=== PATIENT | male | born 1970 | race Two or more races ===

== ENCOUNTER 2022-12-18 20:34 | Emergency (ER) | payer MEDICAID, OTHER ==
[~2022-12-18] VITALS: Ht 162.6 cm; Wt 100.0 kg
[2022-12-18 20:40] VITALS: BP 151/100; PULSE 100; RESP 20; TEMP 98.9
[2022-12-18 21:07] VITALS: O2SAT 100
== END 2022-12-18 21:10 | disposition short-term general hospital (02) ==
LOC: EDBD 20:34 → ER 20:34
DX: S41.012A Laceration without foreign body of left shoulder, initial encounter (principal); F17.210 Nicotine dependence, cigarettes, uncomplicated; F12.10 Cannabis abuse, uncomplicated; F15.10 Other stimulant abuse, uncomplicated; X99.8XXA Assault by other sharp object, initial encounter; Y93.89 Activity, other specified; Y92.89 Other specified places as the place of occurrence of the external cause; Y99.8 Other external cause status

== ENCOUNTER 2023-05-22 03:29 | Emergency (ER) | payer MEDICAID ==
[~2023-05-22] VITALS: Ht 175.3 cm; Wt 104.0 kg
[2023-05-22 04:20] LABS: Basophils # (auto) 0.1 10 ^3/uL (0-0.2); Basophils % (auto) 2.4 % (0.0-2.0); Eosinophils # (auto) 0 10 ^3/uL (0-0.8); Eosinophils % (auto) 0.3 % (0.0-7.0); Hematocrit 44.3 % (41.0-53.0); Hemoglobin 14.6 g/dL (13.5-17.5); Lymphocytes # (auto) 1.9 10 ^3/uL (0.4-5.4); Lymphocytes % (auto) 30.3 % (10.0-50.0); Mean Corpuscular Hemoglobin 32.1 pg (28.0-32.0); Mean Corpuscular Volume 97.3 fL (80.0-100.0); Monocytes # (auto) 0.5 10 ^3/uL (0-1.3); Monocytes % (auto) 7.3 % (0.0-12.0); Neutrophils # (auto) 3.7 10 ^3/uL (1.6-8.6); Neutrophils % (auto) 59.7 % (37.0-80.0); Red Blood Cells 4.56 10^6/uL (4.5-5.90); Red Cell Distribution Width 19.6 % (11.8-14.3); White Blood Cell 6.3 10^3/uL (4.4-10.8)
[2023-05-22 04:25] LABS: INR 1.01 (0.9-1.15); Partial Thromboplastin Time 28.1 SEC (24.5-34.5); Prothrombin Time 10.6 sec (9.3-11.8)
[2023-05-22 05:20] VITALS: BP 180/90; PULSE 109; RESP 16; TEMP 97.7; O2SAT 97
== END 2023-05-22 05:34 | disposition home or self-care (01) ==
LOC: ER 03:29 → EDBD 03:29 → ER 05:34
DX: R07.89 Other chest pain (principal); F10.10 Alcohol abuse, uncomplicated; I10 Essential (primary) hypertension; J44.9 Chronic obstructive pulmonary disease, unspecified; I25.2 Old myocardial infarction; F20.9 Schizophrenia, unspecified; F17.210 Nicotine dependence, cigarettes, uncomplicated; F15.90 Other stimulant use, unspecified, uncomplicated; Z86.73 Personal history of transient ischemic attack (TIA), and cerebral infarction without residual deficits; Y90.0 Blood alcohol level of less than 20 mg/100 ml
CPT/HCPCS: 36415; 71045; 83735; 83880; 84484; 85025; 85610; 85730; 93005

== ENCOUNTER 2023-10-09 07:29 | Emergency (ER) | payer MEDICAID ==
[~2023-10-09] VITALS: Ht 177.8 cm; Wt 118.2 kg
[2023-10-09 07:30] VITALS: BP 119/74; PULSE 116; RESP 18; O2SAT 94
[2023-10-09] MEDS ORDERED: ASPirin 325 MG TAB PO ONE (07:45)
== END 2023-10-09 07:49 | disposition left against medical advice (07) ==
LOC: ER 07:29 → EDBD 07:29 → ER 07:49
DX: R07.89 Other chest pain (principal); F10.10 Alcohol abuse, uncomplicated; J44.9 Chronic obstructive pulmonary disease, unspecified; I10 Essential (primary) hypertension; I25.2 Old myocardial infarction; F17.210 Nicotine dependence, cigarettes, uncomplicated; Z86.73 Personal history of transient ischemic attack (TIA), and cerebral infarction without residual deficits
CPT/HCPCS: 93005

== ENCOUNTER 2023-10-15 01:16 | Inpatient (IN) | payer MEDICAID ==
[~2023-10-15] VITALS: Ht 180.3 cm; Wt 107.3 kg
[2023-10-15 01:49] LABS: Basophils # (auto) 0.1 10 ^3/uL (0-0.2); Basophils % (auto) 0.8 % (0.0-2.0); Eosinophils # (auto) 0 10 ^3/uL (0-0.8); Eosinophils % (auto) 0.1 % (0.0-7.0); Hematocrit 43.7 % (41.0-53.0); Lymphocytes # (auto) 1.2 10 ^3/uL (0.4-5.4); Lymphocytes % (auto) 16.7 % (10.0-50.0); Mean Corpuscular Hgb Conc. 34.3 g/dL (32.0-36.0); Mean Corpuscular Volume 96.1 fL (80.0-100.0); Monocytes # (auto) 0.8 10 ^3/uL (0-1.3); Monocytes % (auto) 10.6 % (0.0-12.0); Neutrophils # (auto) 5.2 10 ^3/uL (1.6-8.6); Neutrophils % (auto) 71.8 % (37.0-80.0); Nucleated Red Blood Cells % 0.1 %; Red Blood Cells 4.55 10^6/uL (4.5-5.90); Red Cell Distribution Width 16.2 % (11.8-14.3); White Blood Cell 7.2 10^3/uL (4.4-10.8)
[2023-10-15 02:08] LABS: Acetaminophen < 2.0 UG/ML (10.0-20.0); Alanine Aminotransferase 29 U/L (7-40); Albumin 4.5 g/dL (3.2-4.8); Alkaline Phosphatase 116 U/L (46-116); Anion Gap 12 (5-15); Aspartate Aminotransferase 58 U/L (13-40); BUN/Creatinine Ratio 11.1 (10.0-20.0); Blood Urea Nitrogen 8 mg/dL (9-23); Calcium 9.1 mg/dL (8.7-10.4); Carbon Dioxide 21 mmol/L (20-30); Chloride 104 mmol/L (98-107); Glucose 85 mg/dL (74-106); Potassium 3.3 mmol/L (3.5-5.1); Sodium 137 mmol/L (136-145); Total Protein 7.7 g/dL (5.7-8.2)
[2023-10-15 02:12] LABS: Salicylate < 3.0 mg/dL (2.8-20.0)
[2023-10-15 03:27] LABS: Blood Alcohol 58.2 mg/dL (<10)
[2023-10-15] MEDS: ONDANSETRON HCL 4 MG/2 ML VIAL IV ONE (10:30)
[2023-10-15] MEDS ORDERED: ACETAMINOPHEN 325 MG TAB PO PRN (10:30)
[2023-10-15] MEDS ORDERED: NITROGLYCERIN 0.4 MG SL TAB SL PRN (10:30)
[2023-10-15] MEDS ORDERED: MORPHINE SULFATE INJ 2 MG/ml SYRG IV PRN (10:30)
[2023-10-15] MEDS ORDERED: DOCUSATE SOD 100 MG CAP PO PRN (10:30)
[2023-10-15] MEDS: LORazepam 2MG/ML-1ML VIAL IV ONE (10:31)
[2023-10-15] MEDS: PANTOPRAZOLE 40 MG/10 ML VIAL INJ IV ONE (10:50)
[2023-10-15] MEDS: SODIUM CHLORIDE 0.9% 1,000 ML IV SCH (10:54)
[2023-10-15] MEDS: SODIUM CHLORIDE 0.9% 1,000 ML IVB ONE (10:54)
[2023-10-15] MEDS: hydrALAZINE HCL 20 MG/ML VL IV PRN (12:04)
[2023-10-15] MEDS: hydrALAZINE HCL 20 MG/ML VL ONE (12:28)
[2023-10-15] MEDS: FOLIC ACID 1 MG, MAGNESIUM SULF SDV 50% 8 MEQ, MULTIPLE VITAMIN 10 ML, THIAMINE INJ 100... INJ SCH (16:08)
[2023-10-15] MEDS: MORPHINE SULFATE INJ 2 MG/ml SYRG IV PRN (16:17)
[2023-10-15 16:25] VITALS: BP 141/78; PULSE 105; RESP 16; TEMP 98.2; O2SAT 94
[2023-10-15] MEDS ORDERED: FOLIC ACID 1 MG, MAGNESIUM SULF SDV 50% 8 MEQ, MULTIPLE VITAMIN 10 ML, THIAMINE INJ 100... INJ SCH ×2 (16:45→18:00)
[2023-10-15 19:12] VITALS: PULSE 98; RESP 16; O2SAT 95
[2023-10-15 19:22] VITALS: PULSE 81; RESP 16; O2SAT 98
[2023-10-15 19:30] VITALS: PULSE 92; RESP 22; O2SAT 96
[2023-10-15] MEDS: IPRATROPIUM BROM 0.5 MG/2.5ML INH SOL NEB PRN (19:40)
[2023-10-15] MEDS: ALBUTEROL SULF 2.5 MG/0.5ML(0.5%) NEB SOLN NEB PRN (19:41)
[2023-10-15] MEDS: ONDANSETRON HCL 4 MG/2 ML VIAL IV PRN (21:56)
[2023-10-15 23:11] VITALS: BP 139/80; PULSE 100; RESP 19; TEMP 98.4; O2SAT 94
[2023-10-15 23:43] VITALS: BP 134/80; PULSE 100; RESP 16; TEMP 98.4; O2SAT 94
[2023-10-16] VITALS (11 sets, daily range): BP systolic 145–159; BP diastolic 74–93; PULSE 69–101; RESP 16–24; TEMP 97.8–98.4; O2SAT 91–97
[2023-10-16] MEDS: HYDROcodone-ACET 5/325MG TAB PO PRN (01:06)
[2023-10-16] MEDS ORDERED: ZIPR20CA9 PO (02:27)
[2023-10-16] MEDS ORDERED: PHEN1CAP60 PO (02:27)
[2023-10-16] MEDS ORDERED: TRAZ-228 PO (02:27)
[2023-10-16] MEDS ORDERED: HAL5T PO (02:27)
[2023-10-16 06:34] LABS: Basophils # (auto) 0 10 ^3/uL (0-0.2); Basophils % (auto) 0.6 % (0.0-2.0); Eosinophils # (auto) 0.1 10 ^3/uL (0-0.8); Eosinophils % (auto) 1.2 % (0.0-7.0); Hematocrit 38.4 % (41.0-53.0); Hemoglobin 13.1 g/dL (13.5-17.5); Lymphocytes # (auto) 1.2 10 ^3/uL (0.4-5.4); Lymphocytes % (auto) 26.7 % (10.0-50.0); Mean Corpuscular Hemoglobin 32.8 pg (28.0-32.0); Mean Corpuscular Hgb Conc. 34.1 g/dL (32.0-36.0); Mean Corpuscular Volume 96.3 fL (80.0-100.0); Monocytes # (auto) 0.6 10 ^3/uL (0-1.3); Monocytes % (auto) 12.7 % (0.0-12.0); Neutrophils # (auto) 2.7 10 ^3/uL (1.6-8.6); Neutrophils % (auto) 58.8 % (37.0-80.0); Nucleated Red Blood Cells % 0.1 %; Red Blood Cells 3.99 10^6/uL (4.5-5.90); Red Cell Distribution Width 17.1 % (11.8-14.3); White Blood Cell 4.5 10^3/uL (4.4-10.8)
[2023-10-16 06:43] LABS: Alanine Aminotransferase 18 U/L (7-40); Albumin 3.8 g/dL (3.2-4.8); Alkaline Phosphatase 107 U/L (46-116); Anion Gap 4 (5-15); Aspartate Aminotransferase 25 U/L (13-40); BUN/Creatinine Ratio 14.5 (10.0-20.0); Bilirubin, Total 0.9 mg/dL (0.2-1.0); Blood Urea Nitrogen 11 mg/dL (9-23); Calcium 8.4 mg/dL (8.5-10.1); Carbon Dioxide 27 mmol/L (20-30); Chloride 107 mmol/L (98-107); Glucose 124 mg/dL (74-106); Potassium 3.2 mmol/L (3.5-5.1); Sodium 138 mmol/L (136-145)
[2023-10-16 06:44] LABS: Total Protein 6.2 g/dL (5.7-8.2)
[2023-10-16] MEDS: PANTOPRAZOLE 40 MG/10 ML VIAL INJ IV SCH (08:08)
[2023-10-16] MEDS: SODIUM CHLORIDE 0.9% 1,000 ML IV SCH (10:15)
[2023-10-16] MEDS: LISINOPRIL 5 MG TAB PO ONE (11:11)
[2023-10-16] MEDS: POTASSIUM CHL 20 Meq TABLET PO ONE (11:12)
[2023-10-16] MEDS: NICOTINE 21MG/24 HR TOPICAL PATCH TD ONE (11:13)
[2023-10-16 11:41] LABS: Urine Bacteria FEW /hpf (None Seen); Urine Blood Negative /uL (Negative); Urine Clarity Clear (Clear); Urine Color Yellow (Yellow); Urine Mucus FEW (None Seen); Urine Protein, UAD 1+ (Negative); Urine Specific Gravity 1.019 (1.001-1.035); Urine Urobilinogen 4 mg/dL (Negative); Urine WBC <1 /hpf (0 - 3); Urine pH 6.5 (5.0-9.0)
[2023-10-16 11:48] LABS: Amphetamine Screen, Urine Neg (NEGATIVE)
[2023-10-16 11:50] LABS: Barbiturate Scree,Urine Neg (NEGATIVE); Benzodiazephine Screen, Urine Neg (NEGATIVE); Cannabinoid Screen, Urine Neg (NEGATIVE); Cocaine Screen, Urine Neg (NEGATIVE); Opiate Scree,Urine Pos (NEGATIVE); Phencyclidine Screen, Urine Neg (NEGATIVE)
[2023-10-16] MEDS: FOLIC ACID 1 MG, MULTIPLE VITAMIN 10 ML, MAGNESIUM SULF SDV 50% 8 MEQ, THIAMINE INJ 100... INJ SCH (18:06)
[2023-10-16] MEDS: PHENYTOIN SODIUM 100 MG CAP PO SCH (21:20)
[2023-10-16] MEDS: traZODone HCL 50 MG TAB PO SCH (21:20)
[2023-10-17] VITALS (10 sets, daily range): BP systolic 117–149; BP diastolic 66–94; PULSE 70–101; RESP 16–20; TEMP 97.8–98.5; O2SAT 93–97
[2023-10-17] MEDS: LORazepam 2MG/ML-1ML VIAL IV PRN (00:39)
[2023-10-17 06:34] LABS: Basophils # (auto) 0 10 ^3/uL (0-0.2); Basophils % (auto) 0.8 % (0.0-2.0); Eosinophils # (auto) 0.1 10 ^3/uL (0-0.8); Eosinophils % (auto) 2.3 % (0.0-7.0); Hematocrit 40.8 % (41.0-53.0); Hemoglobin 13.7 g/dL (13.5-17.5); Lymphocytes # (auto) 1.5 10 ^3/uL (0.4-5.4); Lymphocytes % (auto) 34.8 % (10.0-50.0); Mean Corpuscular Hgb Conc. 33.7 g/dL (32.0-36.0); Mean Corpuscular Volume 97.8 fL (80.0-100.0); Monocytes # (auto) 0.6 10 ^3/uL (0-1.3); Monocytes % (auto) 13.4 % (0.0-12.0); Neutrophils # (auto) 2.1 10 ^3/uL (1.6-8.6); Neutrophils % (auto) 48.7 % (37.0-80.0); Nucleated Red Blood Cells % 0.1 %; Red Blood Cells 4.17 10^6/uL (4.5-5.90); Red Cell Distribution Width 17.1 % (11.8-14.3); White Blood Cell 4.3 10^3/uL (4.4-10.8)
[2023-10-17 06:45] LABS: Chloride 106 mmol/L (98-107); Potassium 4.1 mmol/L (3.5-5.1); Sodium 137 mmol/L (136-145)
[2023-10-17 06:46] LABS: Anion Gap 4 (5-15); Carbon Dioxide 27 mmol/L (20-30)
[2023-10-17 06:51] LABS: BUN/Creatinine Ratio 9.6 (10.0-20.0); Blood Urea Nitrogen 7 mg/dL (9-23); Glucose 100 mg/dL (74-106)
[2023-10-17 06:53] LABS: Magnesium 2.3 mg/dL (1.6-2.6)
[2023-10-17 06:54] LABS: Phosphorus 3.9 mg/dL (2.4-5.1)
[2023-10-17] MEDS: NICOTINE 21MG/24 HR TOPICAL PATCH TD SCH (09:35)
[2023-10-17] MEDS: LISINOPRIL 5 MG TAB PO SCH (09:35)
[2023-10-18] VITALS (8 sets, daily range): BP systolic 129–152; BP diastolic 77–82; PULSE 72–88; RESP 16–20; TEMP 97.5–98.5; O2SAT 93–96
[2023-10-18] MEDS ORDERED: TRAZ-227 PO (12:09)
[2023-10-18] MEDS ORDERED: PHEN1CAP60 PO (12:09)
[2023-10-18] MEDS ORDERED: PANT40TA2 PO (12:09)
[2023-10-18] MEDS ORDERED: LISI-275 PO (12:09)
== END 2023-10-18 14:39 | disposition home or self-care (01) | DRG 53 ==
LOC: EDBD 01:16 → ER 01:16 → TELE 10:28 → ER 10:28 → TELE-EAST 22:47 → EAST 10-16 00:22
PROVIDERS: ADMIT Nurse Practitioner Family; ATTEND Internal Medicine
DX: G40.909 Epilepsy, unspecified, not intractable, without status epilepticus (principal); J96.00 Acute respiratory failure, unspecified whether with hypoxia or hypercapnia; D69.6 Thrombocytopenia, unspecified; R45.851 Suicidal ideations; I16.0 Hypertensive urgency; F20.0 Paranoid schizophrenia; F17.210 Nicotine dependence, cigarettes, uncomplicated; Y90.3 Blood alcohol level of 60-79 mg/100 ml; F10.229 Alcohol dependence with intoxication, unspecified; F32.A Depression, unspecified; F43.10 Post-traumatic stress disorder, unspecified; J44.9 Chronic obstructive pulmonary disease, unspecified; Y90.9 Presence of alcohol in blood, level not specified; E66.9 Obesity, unspecified; Z59.00 Homelessness unspecified; Z86.73 Personal history of transient ischemic attack (TIA), and cerebral infarction without residual deficits; I25.2 Old myocardial infarction; Z91.51 Personal history of suicidal behavior; Z68.33 Body mass index [BMI] 33.0-33.9, adult; Z79.899 Other long term (current) drug therapy; Y92.009 Unspecified place in unspecified non-institutional (private) residence as the place of occurrence of the external cause
CPT/HCPCS: 36415; 71045; 73030; 80048; 80053; 80307; 80320; 80329; 81001; 83735; 84100; 84484; 85025; 93005; 94640; 96365; 96375; 97163; C9113; G0378; J2405

== ENCOUNTER 2024-05-25 10:11 | Emergency (ER) | payer MEDICAID ==
[~2024-05-25] VITALS: Ht 175.3 cm; Wt 106.9 kg
[~2024-05-25 10:11] MED LIST: HAL5T PO; LISI-275 PO; PANT40TA2 PO; PHEN1CAP38 PO; TRAZ-227 PO; TRAZ-228 PO; ZIPR20CA9 PO
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
[2024-05-25] MEDS: LORazepam 2MG/ML-1ML VIAL IV ONE (10:57)
[2024-05-25] MEDS: FOLIC ACID 1 MG, MULTIPLE VITAMIN 10 ML, MAGNESIUM SULF SDV 50% 8 MEQ, THIAMINE INJ 100... INJ SCH (11:30)
[2024-05-25] MEDS: SODIUM CHLORIDE 0.9% 1,000 ML IV ONE (11:30)
[2024-05-25 12:13] LABS: Basophils # (auto) 0.1 10 ^3/uL (0-0.2); Basophils % (auto) 1.1 % (0.0-2.0); Eosinophils # (auto) 0 10 ^3/uL (0-0.8); Eosinophils % (auto) 0.1 % (0.0-7.0); Hematocrit 44.9 % (41.0-53.0); Hemoglobin 15.1 g/dL (13.5-17.5); Lymphocytes # (auto) 1.2 10 ^3/uL (0.4-5.4); Lymphocytes % (auto) 14.1 % (10.0-50.0); Mean Corpuscular Hemoglobin 30.7 pg (28.0-32.0); Mean Corpuscular Hgb Conc. 33.6 g/dL (32.0-36.0); Mean Corpuscular Volume 91.4 fL (80.0-100.0); Monocytes # (auto) 1.3 10 ^3/uL (0-1.3); Monocytes % (auto) 15.4 % (0.0-12.0); Neutrophils # (auto) 5.7 10 ^3/uL (1.6-8.6); Neutrophils % (auto) 69.3 % (37.0-80.0); Nucleated Red Blood Cells % 0.1 %; Platelet Count (auto) 235 10^3/uL (140-450); Red Blood Cells 4.92 10^6/uL (4.5-5.90); White Blood Cell 8.3 10^3/uL (4.4-10.8)
[2024-05-25] MEDS: SODIUM CHLORIDE 0.9% 1,000 ML IVB ONE (12:15)
[2024-05-25] MEDS: PHENYTOIN IV DILANTIN 1,000 MG in SODIUM CHL 0.9% 250 ML IV ONE (12:23)
--- NOTE | 2024-05-25 12:27 | DVH ---
CHEST RADIOGRAPH Indication: ETOH withdrawal seizure disorder Technique: Frontal and lateral view of the chest was obtained Comparison: None FINDINGS: Lines and Tubes: None Lungs: Congestion Pleura: No effusion. No pneumothorax. Cardiomediastinal contours: Unremarkable Bones: Unremarkable IMPRESSION: Pulmonary vascular congestion
[2024-05-25 12:32] LABS: Albumin 4.4 g/dL (3.2-4.8); Alkaline Phosphatase 115 U/L (46-116); Anion Gap 9 (5-15); BUN/Creatinine Ratio 11.6 (10.0-20.0); Blood Urea Nitrogen 10 mg/dL (9-23); Calcium 9.7 mg/dL (8.7-10.4); Carbon Dioxide 26 mmol/L (20-31); Chloride 103 mmol/L (98-107); Glucose 95 mg/dL (74-106); Lipase 37 U/L (12-53); Magnesium 1.8 mg/dL (1.6-2.6); Sodium 138 mmol/L (136-145)
[2024-05-25 12:33] LABS: Bilirubin, Total 0.9 mg/dL (0.2-1.0); Total Protein 7.1 g/dL (5.7-8.2)
[2024-05-25] MEDS: HYDROcodone-ACET 10/325MG TAB PO ONE (12:43)
[2024-05-25 12:48] LABS: Alanine Aminotransferase 43 U/L (7-40); Aspartate Aminotransferase 46 U/L (13-40); Potassium 3.4 mmol/L (3.5-5.1)
--- NOTE | 2024-05-25 14:45 | ECG ---
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
[2024-05-25] MEDS ORDERED: PHEN1CAP38 PO (15:07)
[2024-05-25] MEDS ORDERED: OMEP20TA PO (15:07)
[2024-05-25] MEDS ORDERED: LISI20TA56 PO (15:07)
[2024-05-25] MEDS ORDERED: ZIPR80CA43 PO (15:07)
[2024-05-25] MEDS ORDERED: TRAZ-228 PO (15:07)
[2024-05-25 16:48] VITALS: BP 149/98; PULSE 97; RESP 17; TEMP 98.7; O2SAT 96
== END 2024-05-25 16:49 | disposition home or self-care (01) ==
LOC: ER 10:11
DX: G40.909 Epilepsy, unspecified, not intractable, without status epilepticus (principal); F10.239 Alcohol dependence with withdrawal, unspecified; E87.6 Hypokalemia; R74.8 Abnormal levels of other serum enzymes; I10 Essential (primary) hypertension; J44.9 Chronic obstructive pulmonary disease, unspecified; F17.210 Nicotine dependence, cigarettes, uncomplicated; F12.90 Cannabis use, unspecified, uncomplicated; Z98.890 Other specified postprocedural states; Z59.00 Homelessness unspecified
CPT/HCPCS: 36415; 71046; 80053; 83690; 83735; 84484; 85025; 93005; 96365; 96366; 96368; 96375; 99284; J1165; J2060; J3411; J3475; J7050; J7070

== ENCOUNTER 2024-11-20 09:42 | Emergency (ER) | payer MEDICAID ==
[~2024-11-20] VITALS: Ht 177.8 cm; Wt 100.0 kg
[~2024-11-20 09:42] MED LIST changes: +LISI20TA56 PO; +OMEP20TA PO; +ZIPR80CA43 PO
[2024-11-20 10:00] VITALS: TEMP 97.9
--- NOTE | 2024-11-20 10:01 | ED.PDOC ---
HPI Comments This is a 54 year old male DOMENICO presenting to the ED with chief complaint of chest pain. EMS reports patient was [place] a shopping center when he begun to experience left/midsternal sharp 10/10 chest pain with associated nausea, vomiting, diarrhea, and left ear pain. EMS relays that the patient is normally a heavy drinker, but his last drink was 3-4 days ago. Patient denies any SOB, dizziness, headache, abdominal pain, or fever. Chief Complaint: Chest Pain Time Seen by MD: 09:58 Primary Care Provider: unknown Reviewed Notes: Nurses Notes, Electrical Instrumentation Technician Notes, Medications, Allergies Allergies: Coded Allergies: NO KNOWN ALLERGIES (Unverified , 05/22/23) Home Meds Active Scripts Lisinopril (Lisinopril) 20 Mg Tab, 1 TAB PO DAILY PRN for 30 Days, #30 TAB 5 Refills Prov:MARCY JJ MD 05/25/24 Omeprazole (Gnp Omeprazole) 20 Mg Tab, 1 TAB PO B.I.D. for 10 Days, #20 TAB 1 Refill Prov:MARCY JJ MD 05/25/24 Trazodone Hcl (Trazodone Hcl) 100 Mg Tab, 50 MG PO QPM for 10 Days, #10 TAB 1 Refill Prov:MARCY JJ MD 05/25/24 Ziprasidone Hydrochloride (Geodon) 80 Mg Cap, 1 CAP PO Q.DAY for 10 Days, #10 CAP 1 Refill Prov:MARCY JJ MD 05/25/24 Phenytoin Sodium (DILANTIN CAPSULE) 100 Mg Cp, 300 MG PO Q.H.S. for 10 Days, #30 CAP Prov:MARCY JJ MD 05/25/24 Lisinopril (Lisinopril) 5 Mg Tab, 10 MG PO DAILY for 30 Days, #30 TAB 3 Refills Prov:FATUMA RODRÍGUEZ MD 10/18/23 Phenytoin Sodium (DILANTIN CAPSULE) 100 Mg Cp, 300 MG PO HS for 30 Days, #30 CAP 2 Refills Prov:FATUMA RODRÍGUEZ MD 10/18/23 Pantoprazole Sodium Sesquihydr (Protonix) 40 Mg Tab, 40 MG PO DAILY for 30 Days, #30 TAB 2 Refills Prov:FATUMA RODRÍGUEZ MD 10/18/23 Trazodone Hcl (Trazodone Hcl) 50 Mg Tab, 50 MG PO HS for 30 Days, #30 TAB 2 Refills Prov:ANNEFATUMA MD 10/18/23 Reported Medications Haloperidol (Haldol) 5 Mg Tb, 5 MG PO, MG 10/16/23 Trazodone Hcl (Trazodone Hcl) 100 Mg Tab, 100 MG PO, MG 10/16/23 Ziprasidone Hydrochloride (Geodon) 20 Mg Cap, PO, CAP 10/16/23 Phenytoin Sodium (DILANTIN CAPSULE) 100 Mg Cp, PO for 30 Days 10/16/23 Information Source: Patient, Emergency Med Personnel Mode of Arrival: EMS Severity: Moderate Timing: Hours Duration: Since onset Prehospital treatment: None Location: Substernal Radiation: No Radiation Quality: Sharp Onset: At Rest Cardiac Risk Factors: Smoker, HTN PE Risk Factors: None History of: Similar pain in past Associated Signs and Symptoms: N/V Past Medical History PAST MEDICAL HISTORY: COPD, CVA, HTN, ID, Schizophrenia, Seizures Surgical History: Denies all surgeries Family History Family History: Reviewed,noncontributory to illness, Unknown Social History Smoker: Cigarettes Alcohol: Heavy Drugs: Denies Drug Use, Marijuana Lives In: Homeless Constitutional: denies: chills, diaphoresis, fatigue, fever, malaise, sweats, weakness, others EENTM: reports: ear pain; denies: blurred vision, double vision, ear bleeding, ear discharge, ear drainage, ear ringing, eye pain, eye redness, hearing loss, mouth pain, mouth swelling, nasal discharge, nose bleeding, nose congestion, nose pain, photophobia, tearing, throat pain, throat swelling, voice changes, others Respiratory: denies: cough, hemoptysis, orthopnea, SOB at rest, shortness of breath, SOB with excertion, stridor, wheezing, others Cardiovascular: reports: chest pain; denies: dizzy spells, diaphoresis, Dyspnea on exertion, edema, irregular heart beat, left arm pain, lightheadedness, pa lpitations, PND, syncope, others Gastrointestinal: reports: diarrhea, nausea, vomiting; denies: abdomen distended, abdominal pain, blood streaked bowels, constipated, dysphagia, difficulty swallowing, hematemesis, melena, poor appetite, poor fluid intake, rectal bleeding, rectal pain, others Genitourinary: denies: burning, dysuria, flank pain, frequency, hematuria, incontinence, penile discharge, penile sore, pain, testicle pain, testicle swelling, urgency, others Neurological: denies: dizziness, fainting, headache, left sided numbness, left sided weakness, numbness, paresthesia, pre-existing deficit, right sided numbness, right sided weakness, seizure, speech problems, tingling, tremors, weakness, others Musculoskeletal: denies: back pain, gout, joint pain, joint swelling, muscle pain, muscle stiffness, neck pain, others Integumetry: denies: bruises, change in color, change in hair/nails, dryness, laceration, lesions, lumps, rash, wounds, others Allergic/Immunocompromised: denies: Difficulty Healing, Frequent Infections, Hives, Itching, others Hematologic/Lymphatic: denies: anemia, blood clots, easy bleeding, easy bruising, swollen glands, others Endocrine: denies: excessive hunger, excessive sweating, excessive thirst, excessive urination, flushing, intolerance to cold, intolerance to heat, unexplained weight gain, unexplained weight loss, others Psychiatric: denies: anxiety, bipolar disorder, depression, hopeless, panic disorder, schizophrenia, sleepless, suicidal, others All Other Systems: Reviewed and Negative Physical Exam General Appearance: Moderate Distress, Normal HEENT: Normal ENT Inspection, Pharynx Normal, TMs Normal Neck: Full Range of Motion, Non-Tender, Normal, Normal Inspection Respiratory: Chest Non-Tender, Lungs Clear, No Accessory Muscle Use, No Respiratory Distress, Normal Breath Sounds Cardiovascular: No Edema, No JVD, No Murmur, No Gallop, Normal Peripheral Pulses, Regular Rate/Rhythm Breast Exam: Deferred Gastrointestinal: No Organomegaly, Non Tender, No Pulsatile Mass, Normal Bowel Sounds, Soft Genitalia: Deferred Pelvic: Deferred Rectal: Deferred Extremities: No calf tenderness, Normal capillary refill, Normal inspection, Normal range of motion, Non-tender, No pedal edema Musculoskeletal : Apperance: Normal Neurologic: Alert, ergonomics engineer II-XII nml as Tested, No Motor Deficits, Normal Affect, Normal Mood, No Sensory Deficits Cerebellar Function: Normal Reflexes: Normal Skin: Dry, Normal Color, Warm Peripheral Pulses: 3+ Radial (R), 3+ Radial (L) Lymphatic: No Adenopathy EKG EKG : Pulse Rate (adult): 131 [place]: Normal Cardiac Rhythm: ST Block: None Hypertrophy: None ST: Normal Was a procedure done? Was a procedure done?: No CP Differential Dx Differential Diagnosis: A-fib, A-Flutter, Angina, Anxiety / Panic Attack, A trial Dysrhythmia, Electrolyte Disorder X-Ray, Labs, Meds, VS Vital Signs Date Time Temp Pulse Resp B/P (MAP) Pulse Ox O2 Delivery O2 Flow Rate FiO2 11/20/24 14:00 89 16 131/87 (102) 93 11/20/24 13:26 93 Room Air* 0 21 11/20/24 13:23 98 16 93 Room Air* 0 21 11/20/24 12:00 103 16 144/88 (106) 93 11/20/24 10:40 96 11/20/24 10:01 131 11/20/24 10:00 97.9 123 22 175/97 (123) 93 97.9 11/20/24 09:53 98.5 134 18 129/94 (106) 98 98.5 11/20/24 09:44 131 Lab Test 11/20/24 11:23 11/20/24 10:34 11/20/24 10:12 Range/Units POC Glucose 87 70-106 mg/dl Troponin I High Sensitivity 7 10 </=54 ng/L White Blood Count 6.8 4.4-10.8 10^3/uL Red Blood Count 5.02 4.5-5.90 10^6/uL Hemoglobin 16.0 13.5-17.5 g/dL Hematocrit 46.2 41.0-53.0 % Mean Corpuscular Volume 92.0 80.0-100.0 fL Mean Corpuscular Hemoglobin 32.0 28.0-32.0 pg Mean Corpuscular Hemoglobin Concent 34.7 32.0-36.0 g/dL Red Cell Distribution Width 14.6 H 11.8-14.3 % Platelet Count 144 140-450 10^3/uL Mean Platelet Volume 9.3 6.9-10.8 fL Neutrophils (%) (Auto) 73.9 37.0-80.0 % Lymphocytes (%) (Auto) 18.4 10.0-50.0 % Monocytes (%) (Auto) 6.6 0.0-12.0 % Eosinophils (%) (Auto) 0.3 0.0-7.0 % Basophils (%) (Auto) 0.8 0.0-2.0 % Neutrophils # (Auto) 5.0 1.6-8.6 10 ^3/uL Lymphocytes # (Auto) 1.3 0.4-5.4 10 ^3/uL Monocytes # (Auto) 0.5 0-1.3 10 ^3/uL Eosinophils # (Auto) 0 0-0.8 10 ^3/uL Basophils # (Auto) 0.1 0-0.2 10 ^3/uL Nucleated Red Blood Cells 0.2 % Sodium Level 136 136-145 mmol/L Potassium Level 3.2 L 3.5-5.1 mmol/L Chloride Level 100 98-107 mmol/L Carbon Dioxide Level 25 20-31 mmol/L Anion Gap 11 5-15 Blood Urea Nitrogen 7 L 9-23 mg/dL Creatinine 0.79 0.700-1.30 mg/dL Glomerular Filtration Rate Calc 106 >90 mL/min BUN/Creatinine Ratio 8.9 L 10.0-20.0 Serum Glucose 97 74-106 mg/dL Calcium Level 9.7 8.7-10.4 mg/dL Current Medications Medications (Trade) Dose Ordered Sig/Puneet Route Start Time Stop Time Status Last Admin Lorazepam (Ativan Inj) 1 mg ONCE ONCE IV 11/20/24 10:00 11/20/24 10:01 W[place] 11/20/24 10:07 Ondansetron HCl (Zofran) 4 mg ONCE ONCE IV 11/20/24 10:00 11/20/24 10:01 WV 11/20/24 10:07 Thiamine HCl 100 mg ONCE ONCE IV 11/20/24 10:00 11/20/24 10:01 WV 11/20/24 10:07 Sodium Chloride 2,000 ml @ 1,000 mls/hr Q2H ONCE IV 11/20/24 10:00 11/20/24 10:34 WV 11/20/24 10:06 Phenytoin Sodium 300 mg/Sodium Chloride 56 ml @ 224 mls/hr ONCE ONCE IV 11/20/24 10:00 11/20/24 10:14 WV 11/20/24 11:52 Sodium Chloride 1,000 ml @ 1,000 mls/hr Q1H ONCE IV 11/20/24 10:00 11/20/24 10:59 DC 11/20/24 10:14 Sodium Chloride 1,000 ml @ 150 mls/hr Q6H40M ONCE IV 11/20/24 10:00 11/20/24 16:39 11/20/24 10:14 Potassium Bicarbonate (Klor-Con/Ef) 25 meq ONCE ONCE PO 11/20/24 11:15 11/20/24 11:16 DC 11/20/24 11:38 Patient alert. History of alcohol use. Vitals stable. Answering questions. Was given thiamine. Establish intravenous access. Was given fluids. Was given Zofran. Was given Ativan. History of seizures. Was given Dilantin. Cardiac marker within normal limits. WBC within normal limits. Patient more comfortable. Counseled patient on effects of drinking for 15 minutes. Counseled patient effects of smoking cigarettes for 15 minutes. Explained to the patient. Continue monitoring. Time of 1ST Reevaluation: 10:57 Reevaluation 1ST: Unchanged Patient Education/Counseling: Diagnosis, Treatment Family Education/Counseling: No Family Present Additional Information Previous visits reviewed: 05/25/24 for ETOH abuse The following tests were ordered, and results were reviewed by me: CBC, BMP, Troponin, EKG Additional Information was gathered from interviewing the following independent historians: EMS I reviewed and agreed with the following test results read by other providers: None I discussed treatment and results with medical personnel and: patient Comprehensive systems review obtained and negative except for what is stated in the HPI. SEPSIS Sepsis Screen Physician Orders Electrocardigram (11/20/24 09:45) Electrocardigram (11/20/24 10:45) Sodium Chloride 0.9% (11/20/24 10:00) * Patient Observer Consult (11/20/24 ) Vital Signs Date Time Temp Pulse Resp B/P (MAP) Pulse Ox O2 Delivery O2 Flow Rate FiO2 11/20/24 14:00 89 16 131/87 (102) 93 11/20/24 13:26 93 Room Air* 0 21 11/20/24 13:23 98 16 93 Room Air* 0 21 11/20/24 12:00 103 16 144/88 (106) 93 11/20/24 10:40 96 11/20/24 10:01 131 11/20/24 10:00 97.9 123 22 175/97 (123) 93 97.9 11/20/24 09:53 98.5 134 18 129/94 (106) 98 98.5 11/20/24 09:44 131 Laboratory Tests Test 11/20/24 10:12 White Blood Count 6.8 10^3/uL (4.4-10.8) Medications Medications Dose Ordered Sig/Puneet Route Start Time Stop Time Status Last Admin Dose Admin Lorazepam 1 mg ONCE ONCE IV 11/20/24 10:00 11/20/24 10:01 DC 11/20/24 10:07 Ondansetron HCl 4 mg ONCE ONCE IV 11/20/24 10:00 11/20/24 10:01 DC 11/20/24 10:07 Phenytoin Sodium 300 mg/Sodium Chloride 56 ml @ 224 mls/hr ONCE ONCE IV 11/20/24 10:00 11/20/24 10:14 DC 11/20/24 11:52 Potassium Bicarbonate 25 meq ONCE ONCE PO 11/20/24 11:15 11/20/24 11:16 DC 11/20/24 11:38 Sodium Chloride 1,000 ml @ 150 mls/hr Q6H40M ONCE IV 11/20/24 10:00 11/20/24 16:39 11/20/24 10:14 Sodium Chloride 1,000 ml @ 1,000 mls/hr Q1H ONCE IV 11/20/24 10:00 11/20/24 10:59 DC 11/20/24 10:14 Sodium Chloride 2,000 ml @ 1,000 mls/hr Q2H ONCE IV 11/20/24 10:00 11/20/24 10:34 DC 11/20/24 10:06 Thiamine HCl 100 mg ONCE ONCE IV 11/20/24 10:00 11/20/24 10:01 DC 11/20/24 10:07 Departure 1 Departure Time of Disposition: 11:03 Impression: Primary Impression: Alcohol withdrawal syndrome Qualified Codes: F10.930 - Alcohol use, unspecified with withdrawal, uncomplicated Additional Impressions: Alcohol abuse Hypokalemia Disposition: HOME / SELF CARE / HOMELESS Condition: Good e-Prescriptions Lisinopril (Lisinopril) 5 Mg Tab 5 MG PO DAILY for 20 Days, #20 TAB Prov: MICHELLE MENDES MD 11/20/24 Discharged With: Self Critical Care Note Critical Care Time?: No Stability Stability form required: No Heart Score Heart Score: Heart Score Response (Comments) Value History Slightly Suspicious 0 EKG Normal 0 Age 45-64 1 Risk Factors >3 or Hx ASHD 2 Troponin Normal limit 0 Total 3 I personally scribed for MICHELLE MENDES MD ([email or web address]) on 11/20/24 at 10:01. Electronically submitted by Desean Ríos ([email or web address]). MICHELLE MENDES MD Nov 20, 2024 10:01
[2024-11-20] MEDS: SODIUM CHLORIDE 0.9% 2,000 ML IV ONE (10:06)
[2024-11-20] MEDS: LORazepam 2MG/ML-1ML VIAL IV ONE (10:07)
[2024-11-20] MEDS: ONDANSETRON HCL 4 MG/2 ML VIAL IV ONE (10:07)
[2024-11-20] MEDS: THIAMINE 100mg/ml INJ (200mg/2ml VIAL) IV ONE (10:07)
[2024-11-20] MEDS: SODIUM CHLORIDE 0.9% 1,000 ML IV ONE ×2 (10:14)
[2024-11-20 10:33] LABS: Hematocrit 46.2 % (41.0-53.0); Hemoglobin 16.0 g/dL (13.5-17.5); Mean Corpuscular Hemoglobin 32.0 pg (28.0-32.0); Mean Corpuscular Volume 92.0 fL (80.0-100.0); Nucleated Red Blood Cells % 0.2 %
[2024-11-20 10:40] LABS: Chloride 100 mmol/L (98-107); Sodium 136 mmol/L (136-145)
[2024-11-20 10:41] LABS: Anion Gap 11 (5-15); Carbon Dioxide 25 mmol/L (20-31); Potassium 3.2 mmol/L (3.5-5.1)
[2024-11-20 10:42] LABS: Calcium 9.7 mg/dL (8.7-10.4)
[2024-11-20 10:46] LABS: Glucose 97 mg/dL (74-106)
[2024-11-20 10:47] LABS: BUN/Creatinine Ratio 8.9 (10.0-20.0)
[2024-11-20 10:50] LABS: Blood Urea Nitrogen 7 mg/dL (9-23)
[2024-11-20] MEDS: POTASSIUM EFFERVESENT TAB 25 MEQ PO ONE (11:38)
[2024-11-20] MEDS: PHENYTOIN IV DILANTIN 300 MG in SODIUM CHL 0.9% 50 ML IV ONE (11:52)
[2024-11-20 13:23] VITALS: PULSE 98; RESP 16; O2SAT 93
[2024-11-20] MEDS ORDERED: LISI-275 PO (14:48)
[2024-11-20 14:56] VITALS: BP 133/82; PULSE 73; RESP 16; O2SAT 93
--- NOTE | 2024-11-20 18:46 | ECG ---
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
--- NOTE | 2024-11-21 07:27 | ECG ---
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
== END 2024-11-20 14:55 | disposition home or self-care (01) ==
LOC: ER 09:42 → EDUNIT# 09:42 → EDBD 09:42 → ER 14:55
DX: F10.139 Alcohol abuse with withdrawal, unspecified (principal); E87.6 Hypokalemia; F17.210 Nicotine dependence, cigarettes, uncomplicated; F12.90 Cannabis use, unspecified, uncomplicated; J44.9 Chronic obstructive pulmonary disease, unspecified; I10 Essential (primary) hypertension; I21.9 Acute myocardial infarction, unspecified; F20.9 Schizophrenia, unspecified; Z86.73 Personal history of transient ischemic attack (TIA), and cerebral infarction without residual deficits; Z79.899 Other long term (current) drug therapy; Z59.00 Homelessness unspecified; Y90.9 Presence of alcohol in blood, level not specified
CPT/HCPCS: 36415; 80048; 82947; 84484; 85025; 93005; 96361; 96365; 96375; 99285; J1165; J2060; J2405; J3411; J7030; 82962

== ENCOUNTER 2024-12-07 15:14 | Emergency (ER) | payer MEDICAID ==
[~2024-12-07] VITALS: Ht 177.8 cm; Wt 100.0 kg
--- NOTE | 2024-12-07 15:23 | ED.PDOC ---
History of Present Illness HPI Comments 54-year-old male brought by paramedics because he is having suicidal ideations. He has been drinking for the last several days last being 30 minutes ago. Complaining of nausea vomiting diarrhea. He states that he has a history of pancreatic cancer for which she does not care to treat. Apart from pancreatic cancer he also has a history of schizophrenia bipolar disorder. Denies any other symptoms. Time Seen by MD: 15:18 Primary Care Provider: UNKNOWN Reviewed Notes: Nurses Notes, Medications, Allergies Allergies: Coded Allergies: NO KNOWN ALLERGIES (Unverified , 05/22/23) Home Meds Active Scripts Lisinopril (Lisinopril) 5 Mg Tab, 5 MG PO DAILY for 20 Days, #20 TAB Prov:MICHELLE MENDES MD 11/20/24 Lisinopril (Lisinopril) 20 Mg Tab, 1 TAB PO DAILY PRN for 30 Days, #30 TAB 5 Refills Prov:MARCY JJ MD 05/25/24 Omeprazole (Gnp Omeprazole) 20 Mg Tab, 1 TAB PO B.I.D. for 10 Days, #20 TAB 1 Refill Prov:MARCY JJ MD 05/25/24 Trazodone Hcl (Trazodone Hcl) 100 Mg Tab, 50 MG PO QPM for 10 Days, #10 TAB 1 Refill Prov:MARCY JJ MD 05/25/24 Ziprasidone Hydrochloride (Geodon) 80 Mg Cap, 1 CAP PO Q.DAY for 10 Days, #10 CAP 1 Refill Prov:MARCY JJ MD 05/25/24 Phenytoin Sodium (DILANTIN CAPSULE) 100 Mg Cp, 300 MG PO Q.H.S. for 10 Days, #30 CAP Prov:MARCY JJ MD 05/25/24 Lisinopril (Lisinopril) 5 Mg Tab, 10 MG PO DAILY for 30 Days, #30 TAB 3 Refills Prov:FATUMA RODRÍGUEZ MD 10/18/23 Phenytoin Sodium (DILANTIN CAPSULE) 100 Mg Cp, 300 MG PO HS for 30 Days, #30 CAP 2 Refills Prov:FATUMA RODRÍGUEZ MD 10/18/23 Pantoprazole Sodium Sesquihydr (Protonix) 40 Mg Tab, 40 MG PO DAILY for 30 Days, #30 TAB 2 Refills Prov:FATUMA RODRÍGUEZ MD 10/18/23 Trazodone Hcl (Trazodone Hcl) 50 Mg Tab, 50 MG PO HS for 30 Days, #30 TAB 2 Refills Prov:FATUMA RODRÍGUEZ MD 10/18/23 Reported Medications Haloperidol (Haldol) 5 Mg Tb, 5 MG PO, MG 10/16/23 Trazodone Hcl (Trazodone Hcl) 100 Mg Tab, 100 MG PO, MG 10/16/23 Ziprasidone Hydrochloride (Geodon) 20 Mg Cap, PO, CAP 10/16/23 Phenytoin Sodium (DILANTIN CAPSULE) 100 Mg Cp, PO for 30 Days 10/16/23 Information Source: Patient, Emergency Med Personnel Mode of Arrival: EMS Severity: Moderate Timing: Hours Duration: Since onset Past Medical History PAST MEDICAL HISTORY: COPD, CVA, HTN, VT, Schizophrenia, Seizures Surgical History: Denies all surgeries Family History Family History: Reviewed,noncontributory to illness, Unknown Social History Smoker: Cigarettes Alcohol: Heavy Drugs: Denies Drug Use, Marijuana Lives In: Homeless Constitutional: denies: chills, diaphoresis, fatigue, fever, malaise, sweats, weakness, others EENTM: denies: blurred vision, double vision, ear bleeding, ear discharge, ear drainage, ear pain, ear ringing, eye pain, eye redness, hearing loss, mouth pain, mouth swelling, nasal discharge, nose bleeding, nose congestion, nose pain, photophobia, tearing, throat pain, throat swelling, voice changes, others Respiratory: denies: cough, hemoptysis, orthopnea, SOB at rest, shortness of breath, SOB with excertion, stridor, wheezing, others Cardiovascular: denies: chest pain, dizzy spells, diaphoresis, Dyspnea on exertion, edema, irregular heart beat, left arm pain, lightheadedness, palpitations, PND, syncope, others Gastrointestinal: reports: diarrhea, nausea, vomiting; denies: abdomen distended, abdominal pain, blood streaked bowels, constipated, dysphagia, difficulty swallowing, hematemesis, melena, poor appetite, poor fluid intake, rectal bleeding, rectal pain, others Genitourinary: denies: burning, dysuria, flank pain, frequency, hematuria, incontinence, penile discharge, penile sore, pain, testicle pain, testicle swelling, urgency, others Neurological: denies: dizziness, fainting, headache, left sided numbness, left sided weakness, numbness, paresthesia, pre-existing deficit, right sided numbness, right sided weakness, seizure, speech problems, tingling, tremors, weakness, others Musculoskeletal: denies: back pain, gout, joint pain, joint swelling, muscle pain, muscle stiffness, neck pain, others Integumetry: denies: bruises, change in color, change in hair/nails, dryness, laceration, lesions, lumps, rash, wounds, others Allergic/Immunocompromised: denies: Difficulty Healing, Frequent Infections, Hives, Itching, others Hematologic/Lymphatic: denies: anemia, blood clots, easy bleeding, easy bruising, swollen glands, others Endocrine: denies: excessive hunger, excessive sweating, excessive thirst, excessive urination, flushing, intolerance to cold, intolerance to heat, unexplained weight gain, unexplained weight loss, others Psychiatric: denies: anxiety, bipolar disorder, depression, hopeless, panic disorder, schizophrenia, sleepless, suicidal, others Physical Exam General Appearance: Moderate Distress HEENT: Normal ENT Inspection, Pharynx Normal, TMs Normal Neck: Full Range of Motion, Non-Tender, Normal, Normal Inspection Respiratory: Chest Non-Tender, Lungs Clear, No Accessory Muscle Use, No Respiratory Distress, Normal Breath Sounds Cardiovascular: No Edema, No JVD, No Murmur, No Gallop, Normal Peripheral Pulses, Regular Rate/Rhythm Breast Exam: Deferred Gastrointestinal: No Organomegaly, Non Tender, No Pulsatile Mass, Normal Bowel Sounds, Soft Genitalia: Deferred Pelvic: Deferred Rectal: Deferred Extremities: No calf tenderness, Normal capillary refill, Normal inspection, Normal range of motion, Non-tender, No pedal edema Musculoskeletal : Apperance: Normal Neurologic: Alert, ironing machine operator II-XII nml as Tested, No Motor Deficits, Normal Affect, Normal Mood, No Sensory Deficits Cerebellar Function: NOT DONE Reflexes: NOT DONE Skin: Dry, Normal Color, Warm Peripheral Pulses: 3+ Radial (R), 3+ Radial (L) Lymphatic: No Adenopathy Was a procedure done? Was a procedure done?: No Differential Dx Considerations may include: Alcohol intoxication X-Ray, Labs, Meds, VS Patient alert. Alcohol abuse. Vitals stable. Answering questions. Establish intravenous access. Was given fluids. Was given thiamine. Once medically cleared he will need psychiatric evaluation. Continue to monitor. Time of 1ST Reevaluation: 15:22 Reevaluation 1ST: Unchanged Patient Education/Counseling: Diagnosis, Treatment, Prognosis Family Education/Counseling: No Family Present SEPSIS Sepsis Screen Physician Orders Complete Blood Count (12/07/24 15:18) Basic Metabolic Panel (12/07/24 15:18) 1 Liter Bolus Of 0.9% Ns (12/07/24 15:30) 0.9% Ns 30mls/Kg (12/07/24 15:30) Thiamine Inj (12/07/24 15:30) Departure 1 Departure Time of Disposition: 15:23 Impression: Primary Impression: Suicidal ideation Additional Impression: Alcohol abuse Disposition: 30 STILL A PATIENT Condition: Good Critical Care Note Critical Care Time?: Yes (90 min-critical care time only) Stability Stability form required: No Heart Score Heart Score: Heart Score Response (Comments) Value History N/A 0 EKG N/A 0 Age N/A 0 Risk Factors N/A 0 Troponin N/A 0 Total 0 MICHELLE MENDES MD Dec 07, 2024 15:23
[2024-12-07] MEDS: SODIUM CHLORIDE 0.9% 1,000 ML IV ONE ×2 (15:30)
[2024-12-07 15:50] LABS: Hematocrit 43.7 % (41.0-53.0); Hemoglobin 15.0 g/dL (13.5-17.5); Mean Corpuscular Hemoglobin 32.1 pg (28.0-32.0); Mean Corpuscular Volume 93.5 fL (80.0-100.0); Nucleated Red Blood Cells % 0.1 %
[2024-12-07 15:54] LABS: Chloride 106 mmol/L (98-107); Potassium 4.0 mmol/L (3.5-5.1); Sodium 140 mmol/L (136-145)
[2024-12-07 15:55] LABS: Anion Gap 8 (5-15); Calcium 9.0 mg/dL (8.7-10.4); Carbon Dioxide 26 mmol/L (20-31)
[2024-12-07 16:00] LABS: BUN/Creatinine Ratio 9.2 (10.0-20.0); Glucose 91 mg/dL (74-106)
[2024-12-07 16:04] LABS: Blood Urea Nitrogen 8 mg/dL (9-23)
[2024-12-07] MEDS: ONDANSETRON HCL 4 MG/2 ML VIAL IV ONE (20:12)
[2024-12-07] MEDS: THIAMINE 100mg/ml INJ (200mg/2ml VIAL) IV ONE (20:13)
[2024-12-07] MEDS: MORPHINE SULFATE 4 MG/ML SYR/VIAL IV ONE (20:13)
[2024-12-07 20:25] VITALS: PULSE 81; RESP 18; O2SAT 93
[2024-12-07] MEDS: ACETAMINOPHEN 325 MG TAB PO ONE (23:47)
--- NOTE | 2024-12-08 00:14 | DVHINCON2 ---
Date of Service if different f: Dec 07, 2024 Time of Service: 23:46 Consult Consult Note PSYCHIATRY ED NEW CONSULT HPI: 54 yo pt with PPH of depression, ETOH use disorder, PTSD, psychosis, and anxiety and PMH of stage 4 pancreatic cancer presents to ED BIBA for safety, psychiatric stabilization, and possible med initiation/optimization in setting of recent homelessness, acute ETOH intoxication and passive SI. Psychiatry consulted for safety evaluation and recommendations in context of current presentation Pt reports over past several weeks experiencing worsening depressed mood, hopelessness/helplessness, negative thoughts, loss of interest, decreased energy, poor sleep/appetite, low self-worth, amotivation, some decline in self- care, irritability/restlessness and unspecified anxiety symptoms. Also intermi ttent SI that are worsening with plan to OD on ETOH, hence has been self medicating with recent increase in ETOH consumption. Identifies primary stress as inadequate housing, limited support system, and recent dx of stage 4 pancreatic CA with poor prognosis - "what's the point of living if I am going to soon". Denies HI/AVH/paranoia/catatonic/perceptual disturbances Does not have active outpt MH services established at this time although has sought outpt MH services in recent past. Currently rx'd geodon 40 mg qd/60 mg qhs, trazodone 50 mg qhs, overall med compliant although hx of med noncompliance noted Daily ETOH use with moderate/severe ETOH use disorder including hx of ETOH w/d tremors/DTs/seizures, drinks 15-20 beers/day with whiskey with no living children, unemployed, homeless for past week, no support system noted Unknown trauma hx. Denies FH of psych hospitalizations, suicide attempts, or completed suicides Stage 4 pancreatic cancer dx with poor prognosis, recent hx of ETOH w/d seizures and DTs Denies hx of SIB/SA/PSG although several prior psych hospitalizations for depression/SI. Some hx of aggression/ anger outbursts/emotional dysregulation/mood reactivity resulting in multiple arrests. Currently on probation for TT. Does not have access to firearms MSE: General Appearance/Behavior: Alert/awake; appears stated age, slightly overweight, fair grooming/hygiene; calm/polite and cooperative, fair eye contact, no PMA/PMR Speech: coherent, rrr Thought Process: L/L/GD Thought Content: Abnormal Thoughts/Perceptions: denies dissociative symptoms Homicidality / Violent Thoughts: adamantly denies HI Suicidality: +SI Hallucinations: denies AVTH Delusions: denies paranoia, persecutory, or grandiose delusions Obsessions /compulsions: None Judgment/Insight: variable/fair Mood & Affect: "depressed" with mood-congruent, somewhat restricted/appropriate Orientation: oriented x 3 Attention/Concentration: appears intact Cognition: grossly intact Assessment: 54 yo pt with PPH of depression, ETOH use disorder, PTSD, psychosis, and anxiety and PMH of stage 4 pancreatic cancer presents to ED BIBA for safety, psychiatric stabilization, and possible med initiation/optimization in setting of recent homelessness, acute ETOH intoxication and passive SI Pt currently expressing some SI with moderate interference in daily functioning in setting of several recent acute life stressors (see hpi) in addition to recent CA dx with poor prognosis. Limited protective factors presently. Self medicating with daily increased ETOH consumption which may be contributing to current symptoms. No outpt MH services at present. Pt agrees to talk with staff instead of acting on any suicidal feelings while in ED. Pt medically cleared in ED Acute safety risk remains elevated and is appropriate for inpatient psychiatric admission for further safety, psychiatric stabilization, and possible medication initiation/optimization. Pt willing to transfer to inpt psych facility voluntarily. Consider 5150 hold for DTS ONLY if needed for transfer or if no voluntary beds are available Primary Diagnosis: Major Depressive disorder, moderate/severe, w/o PF. Schizo affective disorder, depressed type. ETOH use d/o, severe , Recommend VOL transfer to inpt psych facility for higher level of care 1:1 sitter is recommended Maintain suicide/elopement/ETOH w/d & seizure precautions Recommend continuation of current outpt med regimen - geodon 40 mg qd/60 mg qhs, trazodone 50 mg qhs (first dose now) Defer any psychotropic med changes to accepting inpt psych facility Risks/benefits/alternative treatments discussed, informed consent provided by pt If patient later refuses voluntary hospitalization/ requests to be discharged from ED prior to transfer, pt needs to be on 5150 DTS hold Pt verbalized understanding and is receptive to above tx plan This case was discussed with ED nurse/provider and all parties in agreement with above tx plan Conor Li MD Plan discussed with: Patient CONOR LI MD Dec 08, 2024 00:14
[2024-12-08 07:30] VITALS: BP 156/72; PULSE 89; RESP 16; TEMP 97.5; O2SAT 95
[2024-12-08] MEDS: SODIUM CHLORIDE 0.9% 1,000 ML IV ONE (08:54)
[2024-12-08] MEDS: ONDANSETRON HCL 4 MG/2 ML VIAL IV ONE (08:58)
[2024-12-08 19:49] LABS: Urine Amorphous Crystal FEW /hpf (None Seen); Urine Protein, UAD 1+ (Negative)
[2024-12-09] MEDS: ONDANSETRON HCL 4 MG/2 ML VIAL IV ONE (01:05)
--- NOTE | 2024-12-09 10:28 | ED.PDOC ---
Departure 1 Departure Time of Disposition: 10:27 (Patient is medically cleared and cleared by psychiatry. Patient was seen by social work and cleared with resources. Will discharge patient home with outpatient followup.) Impression: Primary Impression: Suicidal ideation Additional Impression: Alcohol abuse Disposition: HOME / SELF CARE / HOMELESS Condition: Stable Discharged With: Self MARTA JOY MD Dec 09, 2024 10:28
== END 2024-12-09 10:00 | disposition home or self-care (01) ==
LOC: EDUNIT# 15:14 → EDBD 15:14 → ER 15:14
DX: R45.851 Suicidal ideations (principal); F10.10 Alcohol abuse, uncomplicated; Z79.899 Other long term (current) drug therapy; Z86.73 Personal history of transient ischemic attack (TIA), and cerebral infarction without residual deficits
CPT/HCPCS: 36415; 80048; 81001; 85025; 96361; 96374; 96375; 96376; 99285; J2270; J2405; J3411; J7030